=== PATIENT | female | born 1975 | race Caucasian/White ===

== ENCOUNTER 2018-08-26 13:24 | Emergency (ER) | payer SELFPAY ==
--- NOTE | 2018-08-26 15:34 | ER ---
Nurse's Notes [facility] Name: Jojo Nowak Age: 43 yrs Sex: Female : 1975 Arrival Date: 08/26/2018 Time: 13:30 Bed 5 Private MD: Diagnosis: Vaginitis, vulvitis and vulvovaginitis in diseases classified elsewhere Presentation: 08/26 13:37 Presenting complaint: Patient states: "I think that my boyfriend slept with someone aj1 else. I have these bubbles and, they look like pimples, like they are filled with pus". Transition of care: patient was not received from another setting of care. Onset of symptoms was August 19, 2016. Risk Assessment: Do you want to hurt yourself or someone else? Patient reports no desire to harm self or others. Initial Sepsis Screen: Does the patient meet any 2 criteria? No. Patient's initial sepsis screen is negative. Does the patient have a suspected source of infection? Yes: Skin breakdown/wound. Care prior to arrival: None. 13:37 Method Of Arrival: Ambulatory aj1 13:37 Acuity: YULY 4 aj1 Triage Assessment: 13:44 General: Appears in no apparent distress. comfortable, Behavior is calm, cooperative, aj1 appropriate for age. Pain: Complains of pain in pelvis Pain currently is 2 out of 10 on a pain scale. Neuro: Level of Consciousness is awake, alert, obeys commands. Cardiovascular: Patient's skin is warm and dry. Respiratory: Airway is patent Respiratory effort is even, unlabored, Respiratory pattern is regular, symmetrical. 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 - Social history:: Smoking status: Patient/guardian denies using tobacco. - Ebola Screening: : Patient denies travel to an Ebola-affected area in the 21 days before illness onset. Screenin:28 Abuse screen: Denies threats or abuse. Denies injuries from another. Nutritional ph screening: On. Tuberculosis screening: No symptoms or risk factors identified. Fall Risk None identified. Assessment: 15:00 General: Appears in no apparent distress. comfortable, well groomed, Behavior is calm, ph cooperative, appropriate for age. Pain: Denies pain. Neuro: Level of Consciousness is awake, alert, obeys commands, Oriented to person, place, time, situation. Cardiovascular: Capillary refill < 3 seconds Patient's skin is warm and dry. Respiratory: Airway is patent Respiratory effort is even, unlabored, Respiratory pattern is regular, symmetrical. GI: No signs and/or symptoms were reported involving the gastrointestinal system. Patient currently denies nausea, vomiting. : Reports " I have a sore area on my vagina and I thought there was a little puss coming out of it." Denies burning with urination, discharge, pain in suprapubic area vaginal itching, Patient is sexually active. Derm: Skin is intact, is healthy with good turgor, Skin is pink, warm \\T\\ dry. Musculoskeletal: Circulation, motion, and sensation intact. Range of motion: intact in all extremities. 15:50 Reassessment: Patient appears in no apparent distress at this time. Patient and/or ph family updated on plan of care and expected duration. Pain level reassessed. Patient is alert, oriented x 3, equal unlabored respirations, skin warm/dry/pink. Pt d/c home. Vital Signs: 13:44 BP 129 / 90; Pulse 89; Resp 16; Temp 97.7; Pulse Ox 98% on R/A; Weight 79.38 kg (R); aj1 Height 5 ft. 2 in. (157.48 cm) (R); Pain 2/10; 15:51 BP 122 / 87; Pulse 81; Resp 16; Temp 97.6; Pulse Ox 99% on R/A; ph 13:44 Body Mass Index 32.01 (79.38 kg, 157.48 cm) aj1 ED Course: 13:30 Patient arrived in ED. as 13:39 Triage completed. aj1 13:44 Arm band placed on Patient placed in waiting room, Patient notified of wait time. aj1 14:22 Deon Pearson PA is PHCP. [facility] 14:22 Ruben Bonner MD is Attending Physician. [facility] 14:23 Ashley Clayton, RN is Primary Nurse. ph 15:05 Assist provider with pelvic exam: Set up pelvic tray. Performed by Deon VEENGAS ph Specimens sent to lab. Patient tolerated well. Patient did not have IV access during this emergency room visit. 15:29 Patient has correct armband on for positive identification. Placed in gown. Bed in low ph position. Call light in reach. Pulse ox on. NIBP on. Warm blanket given. Administered Medications: 15:36 Drug: AZITHromycin 1 grams Route: PO; ph 15:50 Follow up: Response: No adverse reaction ph 15:36 Drug: Flagyl 1 grams Route: PO; ph 15:50 Follow up: Response: No adverse reaction ph Outcome: 15:33 Discharge ordered by . [facility] 15:51 Discharged to home ambulatory. ph 15:51 Condition: good 15:51 Discharge instructions given to patient, Instructed on discharge instructions, follow up and referral plans. medication usage, Demonstrated understanding of instructions, follow-up care, medications, Prescriptions given X 1. 15:52 Patient left the ED. ph Signatures: Saadia Ojeda, RN RN aj1 Deon Pearson PA PA jmm Martinez, Amelia as Ashley Clayton, RN RN ph
--- NOTE | 2018-08-26 15:34 | EDPHYS ---
Physician Documentation [facility] Name: Jojo Nowak Age: 43 yrs Sex: Female : 1975 Arrival Date: 08/26/2018 Time: 13:30 Bed 5 Private MD: ED Physician Ruben Bonner HPI: 08/26 15:08 This 43 yrs old Female presents to ER via Ambulatory with complaints of jmm Vaginal Problem. 15:08 The patient presents with vaginal discomfort. Onset: The symptoms/episode jmm began/occurred gradually, 3 day(s) ago. Modifying factors: The symptoms are alleviated by nothing, the symptoms are aggravated by nothing. Associated signs and symptoms: Pertinent negatives: dysuria, vaginal discharge. This is a 43 year old female that presents to the ED with complaints of possible STI due to unprotected intercourse. Patient states her partner admitted infidelity. States feeling pustules along the outside of her vaginal. Denies dysuria. Denies vaginal discharge. . 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 - Social history:: Smoking status: Patient/guardian denies using tobacco. - Ebola Screening: : Patient denies travel to an Ebola-affected area in the 21 days before illness onset. ROS: 15:08 Constitutional: Negative for fever, chills, and weight loss, Cardiovascular: Negative jmm for chest pain, palpitations, and edema, Respiratory: Negative for shortness of breath, cough, wheezing, and pleuritic chest pain, Abdomen/GI: Negative for abdominal pain, nausea, vomiting, diarrhea, and constipation. 15:08 : Positive for vaginal discomfort. 15:08 All other systems are negative. Exam: 15:08 Head/Face: atraumatic. Eyes: EOMI, no conjunctival erythema appreciated ENT: Moist [facility] Mucus Membranes Neck: Trachea midline, Supple Chest/axilla: Normal chest wall appearance and motion. Cardiovascular: Regular rate and rhythm. No edema appreciated Respiratory: Normal respirations, no respiratory distress appreciated Abdomen/GI: Non distended, soft Back: Normal ROM 15:08 Constitutional: The patient appears in no acute distress, alert, awake. 15:08 : Pelvic Exam: External exam: mild swelling noted to the inferior portion of the left labia, no vesicular lesions are appreciated, no palpable mass appreciated. 15:08 Skin: Appearance: Color: normal in color. 15:08 Neuro: Orientation: is normal, Mentation: is normal, Memory: is normal. 15:08 Psych: Behavior/mood is pleasant, cooperative. Vital Signs: 13:44 BP 129 / 90; Pulse 89; Resp 16; Temp 97.7; Pulse Ox 98% on R/A; Weight 79.38 kg (R); aj1 Height 5 ft. 2 in. (157.48 cm) (R); Pain 2/10; 15:51 BP 122 / 87; Pulse 81; Resp 16; Temp 97.6; Pulse Ox 99% on R/A; ph 13:44 Body Mass Index 32.01 (79.38 kg, 157.48 cm) aj1 MDM: 15:08 Patient medically screened. [facility] 15:33 Data reviewed: vital signs, nurses notes. Counseling: I had a detailed discussion with [facility] the patient and/or guardian regarding: the historical points, exam findings, and any diagnostic results supporting the discharge/admit diagnosis, the need for outpatient follow up, to return to the emergency department if symptoms worsen or persist or if there are any questions or concerns that arise at home. 08/26 15:10 Order name: GC (GONORR/CHLAMYDIA) Probe [facility] 08/26 15:10 Order name: Wet Prep; Complete Time: 15:44 [facility] 08/26 14:28 Order name: Pelvic Exam Setup; Complete Time: 14:38 [facility] 08/26 15:16 Order name: Urine Dipstick--Ancillary (enter results); Complete Time: 15:44 eb Administered Medications: 15:36 Drug: AZITHromycin 1 grams Route: PO; ph 15:50 Follow up: Response: No adverse reaction ph 15:36 Drug: Flagyl 1 grams Route: PO; ph 15:50 Follow up: Response: No adverse reaction ph Disposition: 15:33 Chart complete. [facility] 17:18 Co-signature as Attending Physician, Ruben Bonner MD. rn Disposition: 08/26/18 15:33 Discharged to Home. Impression: Vaginitis, vulvitis and vulvovaginitis in diseases classified elsewhere. - Condition is Stable. - Discharge Instructions: Vaginitis. - Prescriptions for Doxycycline Hyclate 100 mg Oral Tablet - take 1 tablet by ORAL route every 12 hours; 24 tablet. - Medication Reconciliation Form, Thank You Letter, Antibiotic Education, Prescription Opioid Use form. - Follow up: Private Physician; When: 2 - 3 days; Reason: Recheck today's complaints, Continuance of care, Re-evaluation by your physician. Signatures: Dispatcher [employer] Saadia Chang RN RN aj1 Deon Pearson PA PA jmm Nieto, Roman, MD MD rn Hall, Patricia, RN RN ph Corrections: (The following items were deleted from the chart) 15:52 15:33 08/26/2018 15:33 Discharged to Home. Impression: Vaginitis, vulvitis and ph vulvovaginitis in diseases classified elsewhere. Condition is Stable. Forms are Medication Reconciliation Form, Thank You Letter, Antibiotic Education, Prescription Opioid Use. Follow up: Private Physician; When: 2 - 3 days; Reason: Recheck today's complaints, Continuance of care, Re-evaluation by your physician. [facility]
[2018-08-26] MEDS ORDERED: AZITHROMYCIN 250 MG TAB ONE (15:38)
[2018-08-26] MEDS ORDERED: metroNIDAZOLE 500 MG TABLET ONE (15:39)
[2018-08-26 15:40] LABS: Urine Blood NEGATIVE (NEG); Urine Glucose NEGATIVE (NEG); Urine Protein NEGATIVE (NEG); Urine Specific Gravity 1.025 (1.005-1.030)
[2018-08-29 18:48] LABS: C.trachomatis RNA,TMA Not Detected (Not Detected)
== END 2018-08-26 15:52 | disposition home or self-care (01) ==
LOC: ER 13:24
DX: N77.1 Vaginitis, vulvitis and vulvovaginitis in diseases classified elsewhere (principal); Z88.0 Allergy status to penicillin; Z88.1 Allergy status to other antibiotic agents; Z88.3 Allergy status to other anti-infective agents; Z88.5 Allergy status to narcotic agent; Z91.030 Bee allergy status; Z91.040 Latex allergy status
CPT/HCPCS: 81003; 87210; 87490; 87590; 99284

== ENCOUNTER 2020-09-16 16:49 | Emergency (ER) | payer SELFPAY ==
--- OUTSIDE RECORDS SUMMARY | 2020-09-16 16:52 | XMS REPORT | Continuity of Care Document ---
:1975 Author Organization [facility] Address [address] [place] [address] Care Team Providers Name Role Phone Unavailable Unavailable Unavailable Payers Payer Name Policy Type Policy Number Effective Date Expiration Date S ource Problems This patient has no known problems. Allergies, Adverse Reactions, Alerts Allergy Allergy Status Severity Reaction(s) Onset Inactive Treating Comm ents Source Name Type Date Date Clinician Sulfa DA Active U 2020-0 [facility] (Sulfona 3-10 [place] mid 00:00: [facility] Antibiot 00 are ics) [place] morphine DA Active U 2020-0 [facility] 3-10 [place] 00:[facility]: [facility] 00 are [place] cephalex DA Active U 2020-0 [facility] in 3-10 [place] 00:00: [facility] 00 are [place] nitrofur DA Active U 2020-0 [facility] antoin 3-10 [place] 00:00: [facility] 00 are [place] ciproflo DA Active U 2020-0 [facility] xacin 3-10 [place] 00:00: [facility] 00 are [place] fenofibr DA Active U 2020-0 [facility] ate 3-10 [place] 00:00: [facility] 00 are [place] vancomyc DA Active U 2020-0 [facility] in 3-10 [place] 00:00: [facility] 00 are [place] latex DA Active U 2020-0 [facility] 3-10 [place] 00:00: [facility] 00 are [place] TAPE DA Active U 2020-0 [facility] 1-05 [place] 00:00: [facility] 00 are [place] Sulfa DA Active U 2020-0 [facility] (Sulfona 1-05 [place] mide 00:00: [facility] Antibiot 00 are ics) [place] morphine DA Active U 2020-0 [facility] 11-26 [place] 00:00: [facility] 00 are [place] cephalex DA Active U 2020-0 [facility] in 11-26 [place] 00:00: [facility] 00 are [place] nitrofur DA Active U 2020-0 [facility] antoin 11-26 [place] 00:00: [facility] 00 are [place] ciproflo DA Active U 2020-0 [facility] xacin 11-26 [place] 00:00: [facility] 00 are [place] fenofibr DA Active U 2020-0 [facility] ate 11-26 [place] 00:00: [facility] 00 are [place] vancomyc DA Active U 2020-0 [facility] in 11-26 [place] 00:00: [facility] 00 are [place] latex DA Active U 2020-0 [facility] 11-26 [place] 00:00: [facility] 00 are [place] Medications This patient has no known medications. Procedures This patient has no known procedures. Results Test Description Test Time Test Comments Results Result Comments Source CBC W/AUTO DIFF 2020-08-07 23:29:00 Test Item Value Reference Range Interpretation Comme nts WHITE BLOOD CELL (test code = WBC) 10.3 10 3/uL 4.5-11.0 N RED BLOOD CELL (test code = RBC) 4.21 10 6/uL 3.50-5.50 N HEMOGLOBIN (test code = HGB) 12.6 g/dL 12.0-16.0 N HEMATOCRIT (test code = HCT) 37.2 % 37.0-55.0 N MEAN CELL VOLUME (test code = MCV) 88 fL 81-102 N MEAN CELL HGB (test code = MCH) 29.9 pg 26.0-34.0 N MEAN CELL HGB CONCENTRATION (test code = MCHC) 33.9 g/dL 31.0-37 .0 N RED CELL DISTRIBUTION WIDTH (test code = RDW) 12.3 % 11.6-14. 4 N PLATELET COUNT (test code = PLT) 314 10 3/uL 150-400 N NO CLUMPS NEUTROPHIL % (test code = NT%) 62.8 % 33.0-76.0 N IMMATURE GRANULOCYTE % (test code = IG%) 0.6 % 0.0-1.0 N LYMPHOCYTE % (test code = LY%) 27.4 % 14.0-56.4 N MONOCYTE % (test code = MO%) 4.9 % 0.0-12.9 N EOSINOPHIL % (test code = EO%) 3.4 % 0.0-7.0 N BASOPHIL % (test code = BA%) 0.9 % 0-2.0 N NUCLEATED RBC % (test code = NRBC%) 0.0 % 0-0.2 N NEUTROPHIL # (test code = NT#) 6.46 10 3/uL 1.5-7.0 N IMMATURE GRANULOCYTE # (test code = IG#) 0.060 x10 3/uL 0.000-0.100 N LYMPHOCYTE # (test code = LY#) 2.81 10 3/uL 1.50-4.00 N MONOCYTE # (test code = MO#) 0.50 10 3/uL 0.20-0.80 N EOSINOPHIL # (test code = EO#) 0.35 10 3/uL 0.0-0.5 N BASOPHIL # (test code = BA#) 0.09 10 3/uL 0.0-0.1 N DIFFERENTIAL [id number] 23:29:00 Test Item Value Reference Range Interpretation Comments RBC MORPHOLOGY REQUIRED (test code = RBCM) PLATELET ESTIMATE (test code = PLTEST) ADEQUATE PLATELET MORPHOLOGY (test code = NORMAL PLTMORPH) CBC W/AUTO [id number] 23:29:00 Test Item Value Reference Range Interpretation Comments WHITE BLOOD CELL (test code = 10.3 10 3/uL 4.5-11.0 N WBC) RED BLOOD CELL (test code = 4.21 10 6/uL 3.50-5.50 N RBC) HEMOGLOBIN (test code = HGB) 12.6 g/dL 12.0-16.0 N HEMATOCRIT (test code = HCT) 37.2 % 37.0-55.0 N MEAN CELL VOLUME (test code = 88 fL 81-102 N MCV) MEAN CELL HGB (test code = 29.9 pg 26.0-34.0 N MCH) MEAN CELL HGB CONCENTRATION 33.9 g/dL 31.0-37.0 N (test code = MCHC) RED CELL DISTRIBUTION WIDTH 12.3 % 11.6-14.4 N (test code = RDW) PLATELET COUNT (test code = 314 10 3/uL 150-400 N NO CLUMPS PLT) NEUTROPHIL % (test code = 62.8 % 33.0-76.0 N NT%) IMMATURE GRANULOCYTE % (test 0.6 % 0.0-1.0 N code = IG%) LYMPHOCYTE % (test code = 27.4 % 14.0-56.4 N LY%) MONOCYTE % (test code = MO%) 4.9 % 0.0-12.9 N EOSINOPHIL % (test code = 3.4 % 0.0-7.0 N EO%) BASOPHIL % (test code = BA%) 0.9 % 0-2.0 N NUCLEATED RBC % (test code = 0.0 % 0-0.2 N NRBC%) NEUTROPHIL # (test code = 6.46 10 3/uL 1.5-7.0 N NT#) IMMATURE GRANULOCYTE # (test 0.060 x10 3/uL 0.000-0.100 N code = IG#) LYMPHOCYTE # (test code = 2.81 10 3/uL 1.50-4.00 N LY#) MONOCYTE # (test code = MO#) 0.50 10 3/uL 0.20-0.80 N EOSINOPHIL # (test code = 0.35 10 3/uL 0.0-0.5 N EO#) BASOPHIL # (test code = BA#) 0.09 10 3/uL 0.0-0.1 N DIFFERENTIAL [id number] 23:29:00 Test Item Value Reference Range Interpretation Comments RBC MORPHOLOGY REQUIRED (test NORMAL code = RBCM) PLATELET ESTIMATE (test code = ADEQUATE ADEQUATE PLTEST) PLATELET MORPHOLOGY (test code FEW LARGE PLTS NORMAL = PLTMORPH) - CT ABD PELVIS W/O [id number] 21:59:00Patient Name: ANALIA FARAH Unit No: [id number] EXAMS: CPT CODE: [id number] CT ABD PELVIS W/O CONT [id number] LOCATION: H43 EXAM: - CT ABD PELVIS W/O CONT HISTORY: hx medullary kidney dz, hx stones, pyelo, r flank TECHNIQUE: Axial imaging of the abdomen and pelvis from the lung base to the pubic symphysis without administration of intravenous contrast. Sagittal and coronal reconstructions. CT scan performed using appropriate/available dose optimization/reduction techniques. DLP 984.4 mGy/cm COMPARISON: None. FINDINGS: Lung base:The visualized lung base is clear. The heart size is normal. No pericardial or pleural effusion is present. Assessment of abdominal viscera limited in the absence of intravenous contrast. Liver/spleen: The liver is unremarkable. A splenic capsular calcification is present, consistent with sequela of prior trauma or infection. Biliary system: The gallbladder is unremarkable. No biliary duct dilatation. Pancreas: Unremarkable. Adrenal glands:Normal. Kidneys: The kidneys are symmetric and within normal limits of size. Mild high density is present in the bilateral renal medulla, consistent with medullary nephrocalc inosis. A 7 mm calculus is present in the left lower pole. A 3 mm calculus is present in the right upper pole. There is no hydroureteronephrosis. No perinephric fluid is present. Vascular: Normal caliber abdominal aorta. Lymph nodes: Nonpathologicallyenlarged retroperitoneal lymph nodes are noted measuring up to 8 mm in short axis. These are consistent with reactive lymph nodes. Pelvic structures: The urinary bladder is nearly completely empty, limiting its evaluation. No significant perivesicular inflammatory changes are present. The uterus is absent. There are no abnormal adnexal masses. There isno pelvic lymphadenopathy or free fluid. Name: ANALIA FARAH [facility] Phys: [email or web address] - [place] [address] : 1975 Age: 45 Sex: [place] [id number] Loc: [facility] Exam Date: 08/07/2020 Status: REG ER PH: FAX: PAGE 1 Signed Report (CONTINUED) Patient Name: ANALIA FARAH Unit No: [id number] EXAMS: CPT CODE: [id number] CT ABD PELVIS W/O CONT [id number] <Continued> Gastrointestinal tract: No abnormal bowel dilatation. No pathologically dilated appendix or focal inflammatory changes in the right lower quadrant. No focal fluid collections, ascites or evidence of pneumoperitoneum. Bones and soft tissues: The osseous structures are intact. IMPRESSION: 1. Nonobstructing bilateral nephrolithiasis and findings consistent with medullary nephrocalcinosis. No specific findings to indicate underlying pyelonephritis. at 2159 Reported and signed by: Anya Andrade MD CC: Luca Sharma MD Technologist: Adam Bello Jr CTDI: 17.7 DLP: 984.4 Trscr Dt/Tm: 08/07/2020 (2158) by:[email or web address] Electronic Signature Date/Time: 08/07/2020 (2158)Orig Print D/T: S: 08/07/2020 (2237) Name: ANALIA FARAH [facility] [place] Phys: [place] [address] : Age: 45 Sex: [place] [address] Loc: [place].[facility] Exam Date: 08/07/2020 Status: REG ER PH: FAX: PAGE 2 Signed ReportBASIC METABOLIC [id number] 21:42:00 Test Item Value Reference Range Interpretation Comments SODIUM (test code = 137 mmol/L 135-145 N NA) POTASSIUM (test code 4.4 mmol/L 3.5-5.1 N HEMOLYZ ED-SLIGHT = K) CHLORIDE (test code = 106 mmol/L 98-107 N CL) CARBON DIOXIDE (test 24 mmol/L 21-32 N code = CO2) ANION GAP (test code 11.4 2.0-16.0 N = GAP) GLUCOSE (test code = 136 mg/dL 65-99 H GLU) BLOOD UREA NITROGEN 14 mg/dL 4-23 N (test code = BUN) GLOMERULAR FILTRATION 58 ml/min >60 L The es timated RATE (test code = glomerular filtration GFR) rate is compute d usingpatient ra ce, age (>18), sex, and serum creatinine. If anyof the needed data elements are mi ssing the Laboratory cannot compute an nirmal mation of the glomerul ar filtration rate . CREATININE (test code 1.1 mg/dL 0.6-1.5 N = CREAT) BUN/CREATININE RATIO 12.7 12.0-20.0 N (test code = BUN/CREA) CALCIUM (test code = 9.1 mg/dL 8.5-10.1 N CA) DATE OF LAST MENSTRUAL PERIOD: 08/06/20LIVER FUNCTION [id number] 21:42:00 Test Item Value Reference Range Interpretation Comments TOTAL PROTEIN 7.8 g/dL 6.4-8.2 N (test code = PROT) ALBUMIN (test code 3.8 g/dL 3.4-5.0 N = ALB) GLOBULIN (test 4.0 g/dL 2.3-3.5 H code = GLOB) BILIRUBIN TOTAL 0.4 mg/dL 0.2-1.2 N Use of this assay is not (test code = BILT) recommend ed for patients undergoingtreat ment with Eltrombopag due to the potential for falselyelevated results. BILIRUBIN DIRECT < 0.1 mg/dL 0.0-0.3 N (test code = BILD) BILIRUBIN INDIRECT 0.3 mg/dL 0.0-0.8 N (test code = BILIND) SGOT/AST (test 41 U/L 15-37 H code = AST) SGPT/ALT (test 32 U/L 6-50 N code = ALT) ALKALINE 102 U/L 45-117 N PHOSPHATASE (test code = ALKP) DATE OF LAST MENSTRUAL PERIOD: 08/06/[id number] 21:42:00 Test Item Value Reference Range Interpretation Comments LIPASE (test code = LIP) 167 U/L 73-393 N DATE OF LAST MENSTRUAL PERIOD: 08/06/20CBC W/AUTO [id number] 21:42:00 Test Item Value Reference Range Interpretation Comments WHITE BLOOD CELL (test code = 10.3 10 3/uL 4.5-11.0 N WBC) RED BLOOD CELL (test code = 4.21 10 6/uL 3.50-5.50 N RBC) HEMOGLOBIN (test code = HGB) 12.6 g/dL 12.0-16.0 N HEMATOCRIT (test code = HCT) 37.2 % 37.0-55.0 N MEAN CELL VOLUME (test code = 88 fL 81-102 N MCV) MEAN CELL HGB (test code = 29.9 pg 26.0-34.0 N MCH) MEAN CELL HGB CONCENTRATION 33.9 g/dL 31.0-37.0 N (test code = MCHC) RED CELL DISTRIBUTION WIDTH 12.3 % 11.6-14.4 N (test code = RDW) PLATELET COUNT (test code = 10 3/uL 150-400 N PLT) MEAN PLATELET VOLUME (test fL 9.0-12.6 N code = MPV) NEUTROPHIL % (test code = NT%) 62.8 % 33.0-76.0 N IMMATURE GRANULOCYTE % (test 0.6 % 0.0-1.0 N code = IG%) LYMPHOCYTE % (test code = LY%) 27.4 % 14.0-56.4 N MONOCYTE % (test code = MO%) 4.9 % 0.0-12.9 N EOSINOPHIL % (test code = EO%) 3.4 % 0.0-7.0 N BASOPHIL % (test code = BA%) 0.9 % 0-2.0 N NUCLEATED RBC % (test code = 0.0 % 0-0.2 N NRBC%) NEUTROPHIL # (test code = NT#) 6.46 10 3/uL 1.5-7.0 N IMMATURE GRANULOCYTE # (test 0.060 x10 3/uL 0.000-0.100 N code = IG#) LYMPHOCYTE # (test code = LY#) 2.81 10 3/uL 1.50-4.00 N MONOCYTE # (test code = MO#) 0.50 10 3/uL 0.20-0.80 N EOSINOPHIL # (test code = EO#) 0.35 10 3/uL 0.0-0.5 N BASOPHIL # (test code = BA#) 0.09 10 3/uL 0.0-0.1 N DIFFERENTIAL [id number] 21:42:00 Test Item Value Reference Range Interpretation Comments RBC MORPHOLOGY REQUIRED (test code = RBCM) PLATELET ESTIMATE (test code = PLTEST) ADEQUATE PLATELET MORPHOLOGY (test code = NORMAL PLTMORPH) CBC W/AUTO [id number] 21:42:00 Test Item Value Reference Range Interpretation Comments WHITE BLOOD CELL (test code = 10.3 10 3/uL 4.5-11.0 N WBC) RED BLOOD CELL (test code = 4.21 10 6/uL 3.50-5.50 N RBC) HEMOGLOBIN (test code = HGB) 12.6 g/dL 12.0-16.0 N HEMATOCRIT (test code = HCT) 37.2 % 37.0-55.0 N MEAN CELL VOLUME (test code = 88 fL 81-102 N MCV) MEAN CELL HGB (test code = 29.9 pg 26.0-34.0 N MCH) MEAN CELL HGB CONCENTRATION 33.9 g/dL 31.0-37.0 N (test code = MCHC) RED CELL DISTRIBUTION WIDTH 12.3 % 11.6-14.4 N (test code = RDW) PLATELET COUNT (test code = 10 3/uL 150-400 N PLT) MEAN PLATELET VOLUME (test fL 9.0-12.6 N code = MPV) NEUTROPHIL % (test code = NT%) 62.8 % 33.0-76.0 N IMMATURE GRANULOCYTE % (test 0.6 % 0.0-1.0 N code = IG%) LYMPHOCYTE % (test code = LY%) 27.4 % 14.0-56.4 N MONOCYTE % (test code = MO%) 4.9 % 0.0-12.9 N EOSINOPHIL % (test code = EO%) 3.4 % 0.0-7.0 N BASOPHIL % (test code = BA%) 0.9 % 0-2.0 N NUCLEATED RBC % (test code = 0.0 % 0-0.2 N NRBC%) NEUTROPHIL # (test code = NT#) 6.46 10 3/uL 1.5-7.0 N IMMATURE GRANULOCYTE # (test 0.060 x10 3/uL 0.000-0.100 N code = IG#) LYMPHOCYTE # (test code = LY#) 2.81 10 3/uL 1.50-4.00 N MONOCYTE # (test code = MO#) 0.50 10 3/uL 0.20-0.80 N EOSINOPHIL # (test code = EO#) 0.35 10 3/uL 0.0-0.5 N BASOPHIL # (test code = BA#) 0.09 10 3/uL 0.0-0.1 N DIFFERENTIAL [id number] 21:42:00 Test Item Value Reference Range Interpretation Comments RBC MORPHOLOGY REQUIRED (test code = RBCM) PLATELET ESTIMATE (test code = PLTEST) ADEQUATE PLATELET MORPHOLOGY (test code = NORMAL PLTMORPH) UA RFLX MICR CULT IF [id number] 21:26:00 Test Item Value Reference Range Interpretation Comments UA COLOR (test code = YELLOW YELLOW COLU) UA APPEARANCE (test code CLOUDY CLEAR A = APPU) UA GLUCOSE DIPSTICK NEGATIVE NEGATIVE (test code = DGLUU) UA BILIRUBIN DIPSTICK NEGATIVE NEGATIVE (test code = BILU) UA KETONE DIPSTICK (test TRACE NEGATIVE A code = KETU) UA SPECIFIC GRAVITY 1.024 1.005-1.025 N (test code = SGU) UA BLOOD DIPSTICK (test 1+ NEGATIVE A code = SYBIL) UA PH DIPSTICK (test 5.0 5.0-8.0 code = SAMMI) UA PROTEIN DIPSTICK 2+ NEGATIVE A (test code = PROU) UA UROBILINOGEN DIPSTICK NEGATIVE EU/dL 0.1-0.2 (test code = URO) UA NITRITE DIPSTICK NEGATIVE NEGATIVE (test code = THONG) UA LEUKOCYTE ESTERASE 3+ NEGATIVE A DIPSTICK (test code = LEUU) UA MICROSCOPIC NEEDED? YES NO A (test code = UAMICRO) UA WBC (test code = TOO NUMEROUS TO CNT 0-3 A WBCU) /hpf UA RBC (test code = 21-30 /hpf 0-3 A RBCU) UA BACTERIA (test code = RARE /HPF NEGATIVE BACU) UA SQUAMOUS CELLS (test Many /HPF FEW code = SQU) UA URIC ACID CRYSTALS OCCASIONAL /hpf NONE SEEN (test code = URIU) UA MUCUS (test code = OCCASIONAL /lpf MUCU) UA AMORPHOUS SEDIMENT OCCATIONAL /hpf (test code = AMORU) Indication for culture: Dysuria/Frequency- DUP VEIN UNI [id number] 15:56:00Patient Name: ANALIA FARAH Unit No: [id number] EXAMS: CPT: [id number] [id number] RIGHT LOWER EXTREMITY VENOUS DOPPLER. HISTORY: pain, discoloration,swelling TECHNIQUE: Right lower extremity doppler assessment was performed with g rayscale, color Doppler and spectral waveform images. FINDINGS: The common femoral, femoral, popliteal, and calf veins are patent and compressible with normal color Doppler blood flow and normal augmentation. No thrombus is identified. Visualized soft tissues are unremarkable. IMPRESSION: Unremarkable right lowerextremity venous duplex ultrasound. No evidence of DVT. ElectronicallySigned by DIGNA HOLMAN M.D. on 01/30/2020 at 1556 Reported and signed by: DIGNA HOLMAN M.D. CC: Sparkle Hale MD; Kalie Duque NP; Doc No Technologist: Stephen Alvares Probe: Trscr Dt/Tm: 01/30/2020 (1556) by:Diego Orig Print D/T: S: 01/30/2020 (1559) BATCH NO: N/A [facility] [place] Phys: Clair Javierily RECONCILIATION SPECIALIST [address] : 1975 Age: 44 Sex: F [place] Loc: T.ERS Exam Date: 01/30/2020 Status: REG ER PH: FAX: PAGE 1 Signed Report- XR FOOT 3 + V [id number] 15:21:00Patient Name: ANALIA FARAH Unit No: [id number] EXAMS: CPT: [id number] XR FOOT 3 + [place] [id number] RIGHT ANKLE, 4 VIEWS: HISTORY: Trauma FINDINGS:No bony or joint abnormalities noted. No acute fracture or dislocation lytic or blastic lesionis seen. IMPRESSION: Normal right ankle. RIGHT FOOT, 4 VIEWS: HISTORY: pain, discoloration, swelling FINDINGS: No acute fracture or dislocation is noted. No bony or joint abnormality is seen. IMPRESSION: Normal right foot. at 1521 Reported and signed by: Abraham Baldwin MD CC: Sparkle Hale MD; Kalie Duque NP; Doc No Technologist: Temo Orourke Fluoro Time: DAP (Gy m2): Air Kerma (mGy): Trscr Dt/Tm: 01/30/2020 (1521) by:[email or web address] Orig Print D/T: S: 01/30/2020 (1524) BATCH NO: N/A Name: [facility] [place] Phys: URBAN DuqueKalie RECONCILIATION SPECIALIST [address] : 1975 Age: 44 Sex: [place] Loc: T.ERS Exam Date: 01/30/2020 Status: PRE ER PH: FAX: PAGE 1 Signed Report- XR ANKLE 3 + V [id number] 15:21:00Patient Name: ANALIA FARAH Unit No: [id number] EXAMS: CPT: [id number] XR ANKLE 3 + [place] [id number] RIGHT ANKLE, 4 VIEWS: HISTORY: Trauma FINDINGS:No bony or joint abnormalities noted. No acute fracture or dislocation lytic or blastic lesionis seen. IMPRESSION: Normal right ankle. RIGHT FOOT, 4 VIEWS: HISTORY: pain, discoloration, swelling FINDINGS: No acute fracture or dislocation is noted. No bony or joint abnormality is seen. IMPRESSION: Normal right foot. at 1521 Reported and signed by: Abraham Baldwin MD CC: Sparkle Hale MD; Kalie Duque NP; Doc No Technologist: Temo Orourke Fluoro Time: DAP (Gy m2): Air Kerma (mGy): Trscr Dt/Tm: 01/30/2020 (1521) by:[email or web address] Orig Print D/T: S: 01/30/2020 (1524) BATCH NO: N/A Name: ANALIA FARAH [facility] [place] Phys: Kalie Javier NP [address] : 1975 Age: 44 Sex: F [employer] Loc: T.ERS Exam Date: 01/30/2020 Status: PRE ER PH: FAX: PAGE 1 Signed Report
[2020-09-16 17:14] LABS: Arterial Blood Carboxyhemoglob 1.2 % (0-1.5); Blood Gas Oxyhemoglobin 94.7 % (94-97); Blood O2 Saturation 96.7 % (92-98.5)
[2020-09-16] MEDS ORDERED: MIDAZOLAM HCL 100 MG in NA CHLORIDE 0.9% 80 ML IV PRN (17:14)
[2020-09-16 17:25] LABS: Barbiturates NEGATIVE (NEGATIVE); Benzodiazepines NEGATIVE (NEGATIVE); Cocaine POSITIVE (NEGATIVE); METHAMPHETAM POSITIVE (NEGATIVE); Methadone NEGATIVE (NEGATIVE); Opiates NEGATIVE (NEGATIVE); Phencyclidine NEGATIVE (NEGATIVE); THC Cannibis NEGATIVE (NEGATIVE)
[2020-09-16] MEDS ORDERED: NA CHLORIDE 0.9% 1,000 ML ONE ×3 (17:28→23:46)
[2020-09-16] MEDS ORDERED: MIDAZOLAM HCL 2 MG/2 ML INJ ONE (17:31)
[2020-09-16 17:38] LABS: Absolute Lymphocytes (CBC) 0.9 K/uL (0.7-4.9); Basophils % 0.7 % (0-1.3); Hematocrit 34.6 % (36.0-45.0); Lymphocytes % 5.6 % (15.3-44.8); MPV 8.5 fL (7.6-11.3)
[2020-09-16 17:41] LABS: Protime INR 1.13
[2020-09-16 17:47] LABS: ALT/SGPT 57 U/L (12-78); AST/SGOT 44 U/L (15-37); Albumin 3.9 g/dL (3.4-5.0); Alkaline Phosphatase 92 U/L (45-117); BUN Blood Urea Nitrogen 14 mg/dL (7-18); Bicarbonate 22 mmol/L (21-32); Bilirubin Direct 0.5 mg/dL (0-0.2); Glucose Level 130 mg/dL (74-106); Protein, Total 7.4 g/dL (6.4-8.2); Sodium Level 140 mmol/L (136-145)
[2020-09-16 17:50] LABS: Potassium 2.7 mmol/L (3.5-5.1)
[2020-09-16 17:54] LABS: Urine Blood TRACE (NEG); Urine Glucose NEGATIVE (NEG); Urine Protein TRACE (NEG); Urine Specific Gravity 1.025 (1.005-1.030); Urine pH 5.5 (5.0-7.0)
--- NOTE | 2020-09-16 17:56 | RAD REPORT ---
EXAM DESCRIPTION: RAD - Chest Single View - 09/16/2020 5:42 pm CLINICAL HISTORY: POST ETT, seizure-like activity, loss of consciousness COMPARISON: None TECHNIQUE: AP portable chest image was obtained 09/16/2020 5:42 pm . FINDINGS: No pulmonary edema seen. Retrocardiac left base parenchymal opacification is increased luis antonio ewhat. This can be monitored on subsequent imaging for possible aspiration. Endotracheal tube tip is 1 centimeter above the maikel. NG tube extends below the diaphragm. Heart an d vasculature are normal. No measurable pleural effusion and no pneumothorax. No acute bony abnormali ty seen. No acute aortic findings suspected. IMPRESSION: Endotracheal tube in place 1 centimeter above the maikel. NG tube extends into the stoma ch. No diffuse pulmonary edema. There is increased density retrocardiac left base. This region is limited on a supine portable exam. This area can be monitored for possible aspiration on subsequent imaging.
[2020-09-16] MEDS ORDERED: KCL 20 MEQ/100 mL IVPB 20 MEQ/100 ML BAG IV ONE (18:44)
--- NOTE | 2020-09-16 18:53 | RAD REPORT ---
EXAM DESCRIPTION: CT - Head Brain Wo Cont - 09/16/2020 6:17 pm CLINICAL HISTORY: DECLINING STATE COMPARISON: Chest Single View dated 09/16/2020 TECHNIQUE: Axial 5 mm thick images of the head were obtained without IV contrast. All CT scans are performed using dose optimization technique as appropriate and may include automated exposure control or mA/KV adjustment according to patient size. FINDINGS: No intracranial hemorrhage, mass, edema or shift of mid-line structures. No acute infarcti on changes seen. No abnormal extra-axial fluid collections. Ventricles are normal. No atrophy or synthetic department supervisor eldon ischemic change. Physiologic calcifications are present. Mastoid air cells are clear. Endotracheal tube is present via right nasal passage. Left nasal passage NG tube in place. No acute bony findings. IMPRESSION: No hemorrhage, edema or acute intracranial finding.
--- NOTE | 2020-09-16 20:46 | EDPHYS ---
Physician Documentation [facility] Name: Jojo Nowak Age: 45 yrs Sex: Female : 1975 Arrival Date: 09/16/2020 Time: 16:53 Bed 2 Private MD: ED Physician Anuel Burns HPI: 09/16 18:57 This 45 yrs old Female presents to ER via EMS with complaints of Unresponsive.jr8 18:57 Onset: The symptoms/episode began/occurred acutely, today. Duration: The episode is jr8 continuous. It is unknown whether or not the patient has had similar symptoms in the past. It is unknown whether or not the patient has recently seen a physician. EMS called after bystander found patient minimally responsive near [facility]. EMS stated that patient was near apneic and unresponsive on scene. Electively intubated for airway protection. A benadryl bottle was found near her as well. Patient brought to ED at that time. 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 - Social history:: Smoking status: unknown. ROS: 18:57 Unable to obtain ROS due to patient is on ventilator. jr8 Exam: 18:57 Radiologist reports: No acute findings jr8 18:57 Eyes: Pupils equal round and reactive to light. Lids and lashes normal. Conjunctiva and sclera are non-icteric and not injected. Cornea within normal limits. Periorbital areas with no swelling, redness, or edema. ENT: Nares patent. No nasal discharge, no septal abnormalities noted. Oropharynx with no redness, swelling, or masses, exudates, or evidence of obstruction, uvula midline. Mucous membranes moist. Neck: Trachea midline and no cervical lymphadenopathy. Cardiovascular: Regular rate and rhythm with a normal S1 and S2. No gallops, murmurs, or rubs. Normal PMI, no JVD. No pulse deficits. Respiratory: Lungs have equal breath sounds bilaterally, clear to auscultation and percussion. No rales, rhonchi or wheezes noted. No increased work of breathing Abdomen/GI: Soft with normal bowel sounds. No distension Skin: Warm, dry with normal turgor. Normal color with no rashes, no lesions, and no evidence of cellulitis. MS/ Extremity: Pulses equal, no cyanosis. Vital Signs: 16:50 BP 129 / 66; Pulse 121; Weight 77.11 kg; bp 16:50 BP 131 / 94; Pulse 110; Resp 21; Pulse Ox 98% on 40% FiO2 ETT vent; bp 17:00 BP 134 / 99; Pulse 105; Resp 19; Temp 97.5; Pulse Ox 98% on 60% FiO2 ETT vent; bp 17:30 BP 126 / 96; Pulse 108; Resp 16; Pulse Ox 99% on ETT vent; tw2 17:58 BP 122 / 83; Pulse 102; Resp 16; Temp 97.3(C); Pulse Ox 98% on ETT vent; tw2 18:47 BP 139 / 80; Pulse 95; Resp 16; Temp 97.6; Pulse Ox 100% on ETT vent; tw2 19:15 BP 129 / 107; Pulse 97; Resp 16; Temp 98; Pulse Ox 100% on ETT vent; rr5 19:51 BP 99 / 73; Pulse 95; Resp 16; Temp 98.1; Pulse Ox 100% on ETT vent; rr5 20:59 BP 98 / 70; Pulse 89; Resp 16; Temp 99.2; Pulse Ox 100% on ETT vent; rr5 22:11 BP 101 / 75; Pulse 86; Resp 16; Temp 99.5; Pulse Ox 100% on ETT vent; rr5 23:40 BP 113 / 78; Pulse 89; Resp 16; Temp 99.5; Pulse Ox 100% on 40% FiO2 ETT vent; rr5 16:50 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 Verbal Response: none(1). Motor Response: withdraws from jr8 pain(4). Modifying Factors: Intubated. Total: 6. 19:15 Eye Response: none(1). Verbal Response: none(1). Motor Response: none(1). Modifying rr5 Factors: Intubated. Total: 3. MDM: 17:04 Patient medically screened. [facility] 18:56 Data reviewed: vital signs, nurses notes, lab test result(s), EKG, radiologic studies, [facility] CT scan, plain films. Data interpreted: Pulse oximetry: on room air is 100 %. Interpretation: normal. Counseling: I had a detailed discussion with the patient and/or guardian regarding: the historical points, exam findings, and any diagnostic results supporting the discharge/admit diagnosis, lab results, radiology results, the need to transfer to another facility, for higher level of care. 20:42 ED course: Patient transferred to [facility] for ICU care. [facility] 09/16 16:57 Order name: Acetaminophen [facility] 09/16 16:57 Order name: Basic Metabolic Panel [facility] 09/16 16:57 Order name: CBC with Diff; Complete Time: 17:48 [facility] 09/16 16:57 Order name: ETOH Level; Complete Time: 18:09 [facility] 09/16 16:57 Order name: Hepatic Function [facility] 09/16 16:57 Order name: PT-INR; Complete Time: 18:09 [facility] 09/16 16:57 Order name: Ptt, Activated; Complete Time: 18:09 [facility] 09/16 16:57 Order name: Salicylate; Complete Time: 18:09 [facility] 09/16 16:57 Order name: Urine Drug Screen; Complete Time: 17:27 [facility] 09/16 17:01 Order name: Osmolality, Serum; Complete Time: 18:09 [facility] 09/16 17:01 Order name: ABG; Complete Time: 17:48 [facility] 09/16 17:01 Order name: Urine Osmolality; Complete Time: 18:09 [facility] 09/16 17:28 Order name: Urine Dipstick--Ancillary (enter results); Complete Time: 18:09 09/16 17:28 Order name: Urine --Ancillary (enter results); Complete Time: 18:09 09/16 16:57 Order name: EKG; Complete Time: 16:57 [facility] 09/16 16:57 Order name: EKG - Nurse/Tech; Complete Time: 16:58 09/16 16:57 Order name: IV Saline Lock; Complete Time: 16:58 09/16 16:57 Order name: Labs collected and sent; Complete Time: 16:59 09/16 17:03 Order name: CT Head Brain wo Cont; Complete Time: 19:01 09/16 17:03 Order name: XRAY Chest (1 view); Complete Time: 18:09 09/16 19:57 Order name: SARS-COV-2 RT PCR; Complete Time: 20:24 EDMS 09/16 23:21 Order name: Magnesium mg2 09/16 16:57 Order name: Urine Dipstick-Ancillary (obtain specimen); Complete Time: 16:59 09/16 17:01 Order name: Urine Test (obtain specimen); Complete Time: 17:08 09/16 17:03 Order name: NG Tube; Complete Time: 17:07 09/16 17:03 Order name: Cloud; Complete Time: 17:07 09/16 17:07 Order name: Restraint:Non-Violent; Complete Time: 17:08 bp Administered Medications: 17:00 Drug: NS 0.9% 1000 ml Route: IV; Rate: 1 bolus; Site: right antecubital; bp 18:00 Follow up: Response: No adverse reaction; IV Status: Completed infusion; IV Intake: tw2 1000ml 17:06 Not Given (Physician Discretion): Propofol 5 mcg/kg/min IV at calculated rate jr8 continuous; titrate per protocol (titrate by 5-10mcg/kg/min every 10 min to max rate of 50 mcg/kg/min) 17:15 Drug: Versed 2 mg Route: IVP; Site: right antecubital; bp 17:52 Follow up: Response: No adverse reaction tw2 17:48 Drug: midazolam 0.1 mg/kg/h Route: IV; Rate: 7 mg/hr; Site: right antecubital; tw2 23:35 Follow up: Response: No adverse reaction; IV Status: Infusion continued upon transfer ea 18:47 Drug: Potassium Chloride 20 mEq Route: IV; Rate: calculated rate; Site: left wrist; tw2 21:00 Follow up: Response: No adverse reaction; IV Status: Completed infusion ea 19:52 Drug: NS 0.9% 1000 ml Route: IV; Rate: 100 ml/hr; Site: left wrist; rr5 21:00 Follow up: Response: No adverse reaction; IV Intake: 1000ml ea 23:36 Follow up: Response: No adverse reaction; IV Status: Infusion continued upon admission ea 23:28 Drug: Magnesium Sulfate 1 grams Route: IVPB; Infused Over: 1 hrs; Site: left wrist; ea 23:36 Follow up: IV Status: Infusion continued upon transfer ea Disposition: 09/17 07:57 Co-signature as Attending Physician, Anuel Burns MD I agree with the assessment and kenan plan of care. Disposition: 09/16/20 20:45 Transfer ordered to [facility]. Diagnosis are Poisoning by other parasympatholytics [anticholinergics and antimuscarinics] and spasmolytics, intentional self-harm, Cocaine abuse, Respiratory failure, unspecified with hypoxia. - Reason for transfer: Higher level of care. - Accepting physician is [facility] . - Condition is Fair. - Problem is new. - Symptoms have improved. Signatures: Dispatcher [employer] [facility] Anuel Burns MD MD cha Roszak, Josh, PA PA jr8 Raúl Shen, MEASUREMENT OPERATOR-C MEASUREMENT OPERATOR-Cla1 Hannah Borges RN RN tw2 Tammy Millan RN Teo Hernandez ea, RN Marquis Rajan, RN RN mg2 George Guallpa, RN RN rr5 Corrections: (The following items were deleted from the chart) 09/16 18:49 18:31 CORONAVIRUS+MR.LAB.BRZ ordered. [facility] 23:45 20:45 09/16/2020 20:45 Transfer ordered to [facility]. Diagnosis is Poisoning by other ea parasympatholytics [anticholinergics and antimuscarinics] and spasmolytics, intentional self-harm; Cocaine abuse; Respiratory failure, unspecified with hypoxia. Reason for transfer: Higher level of care. Accepting physician is [facility] . Condition is Fair. Problem is new. Symptoms have improved. jr8
--- NOTE | 2020-09-16 20:46 | ER ---
Nurse's Notes [facility] Name: Jojo Nowak Age: 45 yrs Sex: Female : 1975 Arrival Date: 09/16/2020 Time: 16:53 Bed 2 Private MD: Diagnosis: Poisoning by other parasympatholytics [anticholinergics and antimuscarinics] and spasmolytics, intentional self-harm;Cocaine abuse;Respiratory failure, unspecified with hypoxia Presentation: 09/16 16:50 Chief complaint: EMS states: FOUND DOWN AT [facility], POSSIBLE SZ-LIKE ACTIVITY bp WITNESSED BY EMPLOYEES. GCS3 ON SCENE, PER EMS. UNKNOWN DOWNTIME. Coronavirus screen: At this time, the client does not indicate any symptoms associated with coronavirus-19. Ebola Screen: No symptoms or risks identified at this time. Initial Sepsis Screen: Does the patient meet any 2 criteria? Altered Mental Status. HR > 90 bpm. Yes Does the patient have a suspected source of infection? No. Patient's initial sepsis screen is negative. Risk Assessment: Do you want to hurt yourself or someone else? Unable to obtain. Onset of symptoms is unknown. Care prior to arrival: Assisted ventilation, Oral intubation, Medication(s) given: NARCAN, KETAMINE, FENTANYL IV initiated. 18 GA, in the right antecubital area. 16:50 Method Of Arrival: EMS: [facility] bp 16:50 Acuity: YULY 1 bp Triage Assessment: 16:50 General: Appears distressed, obese, Behavior is unresponsive. Pain: Unable to use pain bp scale. Patient is intubated. EENT: LEFT NARE NGT. R NARE NPA. Neuro: Level of Consciousness is unresponsive, Oriented to none. Cardiovascular: Rhythm is sinus tachycardia. Respiratory: Ventilator assessment: ET Tube: 7.0 23 cm at lip. Ventilator Mode: Assist Control (AC) HOB > 30 degrees. GI: Abdomen is non-distended. : No deficits noted. Derm: No deficits noted. Musculoskeletal: No deficits noted. COMPUTER TAPE LIBRARIAN: 17:14 LMP N/A - tw2 Historical: - Allergies: 16:58 Adhesives; bp 16:58 Bactrim; bp 16:58 Bees; bp 16:58 Ciprofloxacin; bp 16:58 fenofibrate; bp 16:58 Keflex; bp 16:58 Latex, Natural Rubber; bp 16:58 Morphine; bp 16:58 Nitrofurantoin; bp 16:58 PENICILLINS; bp 16:58 Sulfa (Sulfonamide Antibiotics); bp 16:58 Vancomycin; bp - Home Meds: 16:58 Unable to obtain [Active]; bp - PMHx: 16:58 Back pain; GERD; hypocalcemia; Kidney stones; Migraines; PTSD; pulmonary nodule; bp - Immunization history:: Adult Immunizations unknown. - Social history:: Smoking status: unknown. Screenin:50 Abuse screen: QUIRINO. Nutritional screening: No deficits noted. Tuberculosis screening: No bp symptoms or risk factors identified. Fall Risk None identified. Assessment: 16:50 General: PT FOUND WITH SUICIDE NOTE. PILL RESIDUE NOTED IN NGT.. Respiratory: Airway bp via oral intubation Ventilator assessment: Ventilator Mode: Assist Control (AC) Tidal Volume: 560 Respiratory Rate: 16 FiO2: 60% PEEP: 5. 17:14 Reassessment: Contacted poison control, spoke to Whitney at the [facility] location. Case aa5 # [id number]. Recommendations are as follow: Monitor for Seizures, agitation, prolonged QRS, administer Bicarb as needed for prolonged QRS, administer IV fluids, Versed drip is recommended for sedation and for possible seizure activity. PA was notified of recommendations. . 17:15 Reassessment: pt appears restless at this time, moving head side to side, provider tw2 notified and medicated as ordered. 17:18 Reassessment: Counted Benadryl 25mg tabs remaining in bottle found by EMS, 166 pills aa5 are missing from the 600 tab bottle.PA was notified. . 17:31 Reassessment: No changes from previously documented assessment. Patient and/or family tw2 updated on plan of care and expected duration. Pain level reassessed. 17:58 Reassessment: pt appears calm at this time and is not moving head side to side, RT tw2 notified of need to move to CAT scan at this time. 18:05 Reassessment: pt escorted to CT at this time, on monitor, pt being bagged by tw2 Mari,RT at this time. 19:10 General: Appears in no apparent distress. Neuro: Level of Consciousness is intubated. rr5 Cardiovascular: Capillary refill < 3 seconds Patient's skin is warm and dry. GI: Abdomen is round non-distended, NGT in place, to suction. Site clean. draining pinkish fluid. 19:10 Pain: Unable to use pain scale. Patient is intubated. Respiratory: Airway via oral rr5 intubation Ventilator assessment: Ventilator Mode: Assist Control (AC) Tidal Volume: 560 Respiratory Rate: 16 FiO2: 60 PEEP: 5 HOB > 30 degrees. : Cloud in place. EENT: unable to obtain information intubated. Derm: Skin is healthy with good turgor, Skin temperature is warm. Musculoskeletal: sedated. 20:20 Reassessment: vital signs hemodynamically stable,for transfer awaiting for acceptance rr5 to other facility. 21:25 Reassessment: No changes from previously documented assessment. for transfer. rr5 22:10 Reassessment: report given to Stefany STANLEYstaffing executive nurse form [facility]. rr5 23:10 Respiratory: Ventilator assessment: Ventilator Mode: Assist Control (AC) Tidal Volume: rr5 560 Respiratory Rate: 16 FiO2: 40 PEEP: 5 HOB > 30 degrees. 23:19 Reassessment: Poison control at [facility] location. Recommendation for repeat EKG now, ea if QTC >470 given Mag 1-2G, if QRS >100 give 1 amp Bicarb.Provider notified. 23:32 Reassessment: Patient and/or family updated on plan of care and expected duration. Pain ea level reassessed. Pt resting with eyes closed, ETT in place resp assited, NG tube in place to low intermittent suction, Cloud catheter in place to BSD. IV sites intact patent with fluid infusing, no erythema or edema noted. [facility] at facility for transfer. Report given to EMS. Pt left ED via stretcher per EMS. Vital Signs: 16:50 BP 129 / 66; Pulse 121; Weight 77.11 kg; bp 16:50 BP 131 / 94; Pulse 110; Resp 21; Pulse Ox 98% on 40% FiO2 ETT vent; bp 17:00 BP 134 / 99; Pulse 105; Resp 19; Temp 97.5; Pulse Ox 98% on 60% FiO2 ETT vent; bp 17:30 BP 126 / 96; Pulse 108; Resp 16; Pulse Ox 99% on ETT vent; tw2 17:58 BP 122 / 83; Pulse 102; Resp 16; Temp 97.3(C); Pulse Ox 98% on ETT vent; tw2 18:47 BP 139 / 80; Pulse 95; Resp 16; Temp 97.6; Pulse Ox 100% on ETT vent; tw2 19:15 BP 129 / 107; Pulse 97; Resp 16; Temp 98; Pulse Ox 100% on ETT vent; rr5 19:51 BP 99 / 73; Pulse 95; Resp 16; Temp 98.1; Pulse Ox 100% on ETT vent; rr5 20:59 BP 98 / 70; Pulse 89; Resp 16; Temp 99.2; Pulse Ox 100% on ETT vent; rr5 22:11 BP 101 / 75; Pulse 86; Resp 16; Temp 99.5; Pulse Ox 100% on ETT vent; rr5 23:40 BP 113 / 78; Pulse 89; Resp 16; Temp 99.5; Pulse Ox 100% on 40% FiO2 ETT vent; rr5 16:50 [employer]AN [employer]ENT [employer] bp Ryland Coma Score: 18:57 Eye Response: none(1). Verbal Response: none(1). Motor Response: withdraws from jr8 pain(4). Modifying Factors: Intubated. Total: 6. 19:15 Eye Response: none(1). Verbal Response: none(1). Motor Response: none(1). Modifying rr5 Factors: Intubated. Total: 3. ED Course: 16:50 Arm band placed on. bp 16:50 Patient has correct armband on for positive identification. Placed in gown. Bed in low bp position. Call light in reach. Side rails up X2. 16:50 Assisted provider with intubation using 7.0 mm ETT via oral route. ET tube secured at bp 22cm at the corner of the mouth Set up intubation tray. Intubated by Hung VENEGAS Placement verified by auscultating bilateral breath sounds. NGT: verified placement of air over stomach, to intermittent suction. Returned gastric contents. Maintain EMS IV. Dressing intact. Good blood return noted. Site clean \T\ dry. Gauge \T\ site: 18 GAUGE R AC. 16:53 Patient arrived in ED. tw2 16:54 Teo Arellano, JADEN is Primary Nurse. bp 16:54 [facility] jr[facility] 16:54 Anuel Burns MD is Attending Physician. jr8 16:56 Triage completed. bp 17:00 Cloud cath inserted, using sterile technique, 16 Fr., by ED staff, balloon inflated, to bp gravity drainage, urine specimen collected. returned clear yellow urine. Patient tolerated well. 17:11 Warm blanket given. chemist assistant on. Pulse ox on. NIBP on. mh5 17:11 Initial lab(s) drawn, by ED staff, sent to lab. Urine collected: Cloud catheter mh5 specimen, cloudy, EKG done, by ED staff, reviewed by Hung VENEGAS. 17:31 Primary Nurse role handed off by Teo Arellano, JADEN tw2 17:31 Hannah Borges RN is Primary Nurse. tw2 17:42 XRAY Chest (1 view) In Process Unspecified. EDMS 17:50 Notified Nurse Practitioner and/or Physician Electronic Video Games Servicer of a critical lab result(s), aa5 Potassium 2.7. 18:17 CT Head Brain wo Cont In Process Unspecified. EDMS 18:47 Inserted saline lock: 20 gauge in left wrist, using aseptic technique. ,using aseptic tw2 technique. by JADEN Haro. 18:48 Inserted saline lock: 22 gauge in right hand, using aseptic technique. ,using aseptic tw2 technique. by JADEN Haro. 19:00 Report given to JADEN Aaron and JADEN Vazquez. tw2 19:30 Primary Nurse role handed off by Hannah Borges RN mw2 19:50 George Guallpa RN is Primary Nurse. rr5 20:31 initiated a transfer with Jeanette Rees from the [facility] transfer center. mw2 21:41 administrative approval given by Jeanette Rees/ patient has been accepted to [facility] 8B bed 825/ Dr. Szymanski has accepted the patient in transfer/ report to be called to [phone]. 23:32 Patient transferred, IV remains in place. ea Restraints: 17:00 Non-Violent Restraint: Order obtained. Initiated on September 16, 2020 at 17:00 Unable to bp provide Restraint education. PT INTUBATED. Actions/Behavior observed: Confused/disoriented, has difficulty remembering/follow instructions, has decreased level of consciousness, unable to follow instructions, repeated attempts to remove artifical airway/mechanical resp support, Less restrictive alternatives attempted: decrease environmental stimuli, 1:1 patient care, placed near Nurse station, reoriented to location, medications evaluated, medicated for pain/anxiety, lines/tubes covered, eliminated unnecessary lines/tubes, verbal de-escalation performed, Alternative interventions: Ineffective. Clinical justification for use: airway protection, patient safety, Mental status: agitated/restless, subdued, Cognition: poor judgement, poor safety awareness, poor attention/concentration, unable to follow commands, Circulation: Within defined parameters (based on Cardiovascular assessment) Skin integrity: Within defined parameters (based on Integumentary assessment) Signs of injury related to restraint: No injuries noted. Range of Motion (ROM): performed. Hydration/Food: patient declined. Elimination/Hygiene: with urinary catheter, Restraint status: Soft wrist restraint (Right) Started. Soft wrist restraint (Left) Started. Criteria to discontinue Restraint not met. Restraint continued. 19:00 Non-Violent Restraint: Initiated on September 16, 2020 at 17:00 Unable to provide rr5 Restraint education. intubated. Actions/Behavior observed: Confused/disoriented, has difficulty remembering/follow instructions, has decreased level of consciousness, unable to follow instructions, repeated attempts to remove artifical airway/mechanical resp support, Less restrictive alternatives attempted: decrease environmental stimuli, 1:1 patient care, placed near Nurse station, medications evaluated, Alternative interventions: Ineffective. Clinical justification for use: airway protection, line protection, patient safety, Mental status: confused, Cognition: poor judgement, poor safety awareness, poor attention/concentration, unable to follow commands, Circulation: Within defined parameters (based on Cardiovascular assessment) Skin integrity: Within defined parameters (based on Integumentary assessment) Signs of injury related to restraint: No injuries noted. Range of Motion (ROM): performed. Elimination/Hygiene: with urinary catheter. 19:00 Non-Violent Restraint: Restraint status: Soft wrist restraint (Right) Continued. Soft rr5 wrist restraint (Left) Continued. Criteria to discontinue Restraint not met. Restraint continued. 21:00 Non-Violent Restraint: Unable to provide Restraint education. intubated. rr5 Actions/Behavior observed: Confused/disoriented, has difficulty remembering/follow instructions, has decreased level of consciousness, unable to follow instructions, repeated attempts to remove artifical airway/mechanical resp support, Clinical justification for use: airway protection, line protection, patient safety, Mental status: confused, Cognition: poor judgement, poor safety awareness, poor attention/concentration, unable to follow commands, Circulation: Within defined parameters (based on Cardiovascular assessment) Skin integrity: Within defined parameters (based on Integumentary assessment) Signs of injury related to restraint: No injuries noted. Range of Motion (ROM): performed. Elimination/Hygiene: with urinary catheter, Restraint status: Soft wrist restraint (Right) Continued. Soft wrist restraint (Left) Continued. Criteria to discontinue Restraint not met. Restraint continued. 23:00 Non-Violent Restraint: Unable to provide Restraint education. intubated. rr5 Actions/Behavior observed: Confused/disoriented, has difficulty remembering/follow instructions, has decreased level of consciousness, unable to follow instructions, repeated attempts to remove artifical airway/mechanical resp support, Clinical justification for use: airway protection, line protection, patient safety, Mental status: agitated/restless, confused, Cognition: poor judgement, poor safety awareness, poor attention/concentration, unable to follow commands, Circulation: Within defined parameters (based on Cardiovascular assessment) Skin integrity: Within defined parameters (based on Integumentary assessment) Signs of injury related to restraint: No injuries noted. Range of Motion (ROM): performed. Elimination/Hygiene: with urinary catheter, Restraint status: Soft wrist restraint (Right) Continued. Soft wrist restraint (Left) Continued. Criteria to discontinue Restraint not met. Restraint continued. Administered Medications: 17:00 Drug: NS 0.9% 1000 ml Route: IV; Rate: 1 bolus; Site: right antecubital; bp 18:00 Follow up: Response: No adverse reaction; IV Status: Completed infusion; IV Intake: tw2 1000ml 17:06 Not Given (Physician Discretion): Propofol 5 mcg/kg/min IV at calculated rate jr8 continuous; titrate per protocol (titrate by 5-10mcg/kg/min every 10 min to max rate of 50 mcg/kg/min) 17:15 Drug: Versed 2 mg Route: IVP; Site: right antecubital; bp 17:52 Follow up: Response: No adverse reaction tw2 17:48 Drug: midazolam 0.1 mg/kg/h Route: IV; Rate: 7 mg/hr; Site: right antecubital; tw2 23:35 Follow up: Response: No adverse reaction; IV Status: Infusion continued upon transfer ea 18:47 Drug: Potassium Chloride 20 mEq Route: IV; Rate: calculated rate; Site: left wrist; tw2 21:00 Follow up: Response: No adverse reaction; IV Status: Completed infusion ea 19:52 Drug: NS 0.9% 1000 ml Route: IV; Rate: 100 ml/hr; Site: left wrist; rr5 21:00 Follow up: Response: No adverse reaction; IV Intake: 1000ml ea 23:36 Follow up: Response: No adverse reaction; IV Status: Infusion continued upon admission ea 23:28 Drug: Magnesium Sulfate 1 grams Route: IVPB; Infused Over: 1 hrs; Site: left wrist; ea 23:36 Follow up: IV Status: Infusion continued upon transfer ea Intake: 18:00 IV: 1000ml; Total: 1000ml. tw2 21:00 IV: 1000ml; Total: 2000ml. ea 22:19 PO: 0ml; Total: 2000ml. rr5 23:40 PO: 0ml; Total: 2000ml. rr5 Output: 22:19 Urine: 1300ml (Cloud); Total: 1300ml. rr5 23:40 Urine: 300ml (Cloud); Total: 1600ml. rr5 Outcome: 20:45 ER care complete, transfer ordered by MD. garcia 23:31 Transferred by ground EMS to [facility], Transfer form ea completed. 23:31 Condition: stable 23:31 Instructed on pt sedated and intubated 23:45 Patient left the ED. ea Signatures: Dispatcher [employer] EDMS Estrellita Dwyer RN RN aa5 Hung Brown PA PA Hannah Gibson RN RN 2 Dianelys Hardy [facility] Tammy Millan RN RN ea Peltier, Brian RN RN Jet Mcclain 2 George Guallpa RN RN rr5 Corrections: (The following items were deleted from the chart) 17:07 16:50 BP 129 / 66; Pulse 121bpm; [employer]; bp bp 18:49 18:45 Inserted saline lock: 22 gauge in right hand, using aseptic technique. aa5 aa5 18:49 18:40 Inserted saline lock: 20 gauge in left wrist, using aseptic technique. aa5 aa5 09/17 01:04 09/16 19:10 Respiratory: Airway via oral intubation Ventilator assessment: Ventilator rr5 Mode: Assist Control (AC) Respiratory Rate: 16 FiO2: 560 PEEP: 5 rr5
[2020-09-16] MEDS ORDERED: Magnesium Sulfate 2gm IVPB 2 G/50 ML BAG IV ONE (23:34)
[2020-09-17 01:15] LABS: Magnesium 1.9 mg/dL (1.8-2.4)
[2020-09-17 02:00] VITALS: O2SAT 100
[2020-09-17 02:07] VITALS: TEMP 99.5
[2020-09-17 02:08] VITALS: BP 113/78
--- NOTE | 2020-09-17 10:07 | EKG ---
Test Date: 2020-09-16 Test Time: 23:16:42 Automatic Furnace Operator: MOUNA MEASUREMENT RESULTS: Intervals: Rate: 86 AR: 148 QRSD: 92 QT: 462 QTc: 552 [place]: P: 45 AR: 148 QRS: 14 T: 45 INTERPRETIVE STATEMENTS: Normal sinus rhythm ST & T wave abnormality, consider anterior ischemia Prolonged QT Abnormal ECG Compared to ECG 09/16/2020 16:59:19 Prolonged QT interval now present Sinus tachycardia no longer present ST (T wave) deviation still present Possible ischemia still present Electronically Signed On 09-17-20 10:06:35 CDT by Chris Dailey
--- NOTE | 2020-09-17 10:08 | EKG ---
Test Date: 2020-09-16 Test Time: 16:59:19 Straightener: NOÉ MEASUREMENT RESULTS: Intervals: Rate: 108 CO: 154 QRSD: 102 QT: 386 QTc: 517 [place]: P: 65 CO: 154 QRS: 2 T: 56 INTERPRETIVE STATEMENTS: Sinus tachycardia ST & T wave abnormality, consider anterior ischemia Abnormal ECG No previous ECG available for comparison Electronically Signed On 09-17-20 10:06:41 CDT by Chris Dailey
== END 2020-09-16 23:45 | disposition short-term general hospital (02) ==
LOC: ER 16:49
PROC: 0BH17EZ Insertion of Endotracheal Airway into Trachea, Via Natural or Artificial Opening (ICD-10-PCS; principal; 2020-09-16)
PROC: 5A1935Z Respiratory Ventilation, Less than 24 Consecutive Hours (ICD-10-PCS; 2020-09-16)
DX: J96.91 Respiratory failure, unspecified with hypoxia (principal); F14.10 Cocaine abuse, uncomplicated; Z20.828 Contact with and (suspected) exposure to other viral communicable diseases; F43.10 Post-traumatic stress disorder, unspecified; Z88.0 Allergy status to penicillin; Z88.1 Allergy status to other antibiotic agents; Z88.2 Allergy status to sulfonamides; Z88.3 Allergy status to other anti-infective agents; Z88.5 Allergy status to narcotic agent; Z88.8 Allergy status to other drugs, medicaments and biological substances; Z91.030 Bee allergy status; Z91.040 Latex allergy status; Z91.048 Other nonmedicinal substance allergy status
CPT/HCPCS: 31500; 36415; 51702; 70450; 71045; 80048; 80076; 80307; 80320; 80329; 81003; 81025; 82805; 83735; 83930; 83935; 85025; 85610; 85730; 93005; 94002; 94003; 99291; 99292; J2250; J3475; J3480; J7030; U0003